=== PATIENT | male | born 1950 | race American Indian/Alaskan Native ===

== ENCOUNTER 2020-08-29 21:25 | Observation (INO) | payer MEDICARE, OTHER ==
[2020-08-29] MEDS ORDERED: SODIUM CHLORIDE 0.9% 1000 ML 1,000 ML IV ONE ×2 (21:36→22:10)
--- NOTE | 2020-08-29 22:06 | Emergency Department Report ---
- General Chief complaint: Weakness Stated complaint: IMMOBILITY Time Seen by Provider: 08/29/20 21:34 Source: patient, EMS Mode of arrival: Stretcher Limitations: No Limitations - History of Present Illness Initial comments: Chief complaint: "I lost power in my legs." HPI: This is a 70-year-old male history of COPD, hypertension, gastric ulcer, diverticulosis, duodenitis, gastritis who presents with weakness. Patient had stumbling gait which began 1 hour prior to arrival. EMS noticed hypotension blood pressure 90/50. Patient had several beers prior to arrival. He denies paralysis in his legs or arms. Patient states that he was too weak to get back to the food that was cooking in the kitchen. He denies bloody or dark stools. He called his son to explain that he was too weak to walk. His son called EMS. Patient is retired. He lives alone. His PCP is Dr. Faustin. He takes 2 antihypertensive medications. Patient denies fever, chest pain, shortness of breath. MD Complaint: generalized weakness -: Sudden, This evening (1 hour prior to arrival) Location: generalized Severity: severe Consistency: constant Improves with: rest Worsens with: other (Standing) Associated Symptoms: other (Generalized weakness, hypotension) - Related Data Previous Rx's Medication Instructions Recorded Last Taken Type Acetaminophen [Acetaminophen TAB] 325 mg PO Q6H PRN #30 tablet 06/14/17 Unknown Rx Albuterol Mdi (or & Nicu Only) 2 puff IH QID PRN #1 unit 06/14/17 Unknown Rx [ProAir HFA Inhaler] Pantoprazole [Protonix TAB] 40 mg PO BID #30 day 06/14/17 Unknown Rx levoFLOXacin [Levaquin TAB] 500 mg PO Q24HR #6 day 06/14/17 Unknown Rx metroNIDAZOLE [Flagyl TAB] 500 mg PO Q8HR #90 tablet 06/14/17 Unknown Rx Allergies Allergy/AdvReac Type Severity Reaction Status Date / Time No Known Allergies Allergy Verified 06/11/17 17:26 ED Review of Systems ROS: Stated complaint: IMMOBILITY Other details as noted in HPI Comment: All other systems reviewed and negative Constitutional: denies: fever, malaise Respiratory: denies: cough, shortness of breath Cardiovascular: denies: chest pain Gastrointestinal: denies: abdominal pain, nausea, vomiting Neurological: denies: headache ED Past Medical Hx - Past Medical History Previous Medical History?: Yes Hx Hypertension: Yes Hx Renal Disease: No Hx Sickle Cell Disease: No Hx COPD: Yes - Surgical History Past Surgical History?: Yes Additional Surgical History: Gastric surgery for ulcer - Social History Smoking Status: Current Every Day Smoker Substance Use Type: Alcohol, Marijuana - Medications Home Medications: Home Medications Medication Instructions Recorded Confirmed Last Taken Type Acetaminophen [Acetaminophen TAB] 325 mg PO Q6H PRN #30 tablet 06/14/17 Unknown Rx Albuterol Mdi (or & Nicu Only) 2 puff IH QID PRN #1 unit 06/14/17 Unknown Rx [ProAir HFA Inhaler] Pantoprazole [Protonix TAB] 40 mg PO BID #30 day 06/14/17 Unknown Rx levoFLOXacin [Levaquin TAB] 500 mg PO Q24HR #6 day 06/14/17 Unknown Rx metroNIDAZOLE [Flagyl TAB] 500 mg PO Q8HR #90 tablet 06/14/17 Unknown Rx ED Physical Exam - General Limitations: No Limitations General appearance: alert, in no apparent distress, appears intoxicated, other (Slurred speech, strong odor of alcohol on breath) - Head Head exam: Present: atraumatic, normocephalic - Eye Eye exam: Present: conjunctival injection. Absent: scleral icterus - ENT ENT exam: Present: mucous membranes moist - Neck Neck exam: Present: normal inspection, full ROM - Respiratory Respiratory exam: Present: normal lung sounds bilaterally. Absent: respiratory distress, wheezes, rales, rhonchi - Cardiovascular Cardiovascular Exam: Present: regular rate, normal rhythm, normal heart sounds. Absent: systolic murmur, diastolic murmur, rubs, gallop - GI/Abdominal GI/Abdominal exam: Present: soft, normal bowel sounds - Extremities Exam Extremities exam: Present: normal inspection - Neurological Exam Neurological exam: Present: alert, oriented X3 - Psychiatric Psychiatric exam: Present: normal mood, flat affect - Skin Skin exam: Present: warm, dry, intact, normal color. Absent: rash - Assessment Assessment Interval: Baseline - Level of Consciousness 1a. Level of Consciousness: alert/keenly responsive - LOC Questions 1b. LOC Questions: answers both correctly - LOC Command 1c. LOC Commands: performs tasks correctly - Best Gaze 2. Best Gaze: normal - Visual 3. Visual: no visual loss - Facial Palsy 4. Facial Palsy: normal symmetrical movement - Motor Arm 5a. Motor Arm Left: no drift 5b. Motor Arm Right: no drift - Motor Leg 6a. Motor Leg Left: no drift 6b. Motor Leg Right: no drift - Limb Ataxia 7. Limb Ataxia: absent - Sensory 8. Sensory: normal - Best Language 9. Best Language: no aphasia - Dysarthria 10. Dysarthria: mild/moderate dysarthria - Extinction and Inattention 11. Extinction/Inattention: no abnormality - Scoring Total Score: 1 Stroke Severity: Minor Stroke ED Course Vital Signs 08/29/20 08/29/20 08/29/20 21:34 21:47 21:52 Temperature 97.9 F Pulse Rate 71 69 Respiratory 17 Rate Blood Pressure 91/42 O2 Sat by Pulse 77 L Oximetry 08/29/20 08/29/20 08/29/20 22:00 23:15 23:31 Temperature Pulse Rate 60 64 Respiratory 18 18 14 Rate Blood Pressure 104/52 113/48 O2 Sat by Pulse 96 93 91 Oximetry 08/29/20 23:45 Temperature Pulse Rate Respiratory 14 Rate Blood Pressure 113/48 O2 Sat by Pulse 93 Oximetry ED Medical Decision Making - Lab Data Result diagrams: 08/29/20 21:51 08/29/20 21:51 Laboratory Results - last 24 hr 08/29/20 08/29/20 08/29/20 21:51 21:51 21:51 WBC 6.5 RBC 4.45 Hgb 12.9 Hct 39.5 MCV 89 MCH 29 MCHC 33 RDW 16.5 H Plt Count 183 Lymph % (Auto) 15.2 [place] % (Auto) 9.0 H Eos % (Auto) 0.3 Baso % (Auto) 0.5 Lymph # (Auto) 1.0 L [place] # (Auto) 0.6 Eos # (Auto) 0.0 Baso # (Auto) 0.0 Seg Neutrophils % 75.0 H Seg Neutrophils # 4.8 PT 12.5 INR 0.95 APTT 25.1 Sodium Potassium Chloride Carbon Dioxide Anion Gap BUN Creatinine Estimated GFR BUN/Creatinine Ratio Glucose Calcium Total Bilirubin AST ALT Alkaline Phosphatase Troponin T < 0.010 Total Protein Albumin Albumin/Globulin Ratio Plasma/Serum Alcohol 08/29/20 08/29/20 21:51 21:51 WBC RBC Hgb Hct MCV MCH MCHC RDW Plt Count Lymph % (Auto) [place] % (Auto) Eos % (Auto) Baso % (Auto) Lymph # (Auto) [place] # (Auto) Eos # (Auto) Baso # (Auto) Seg Neutrophils % Seg Neutrophils # PT INR APTT Sodium 127 L Potassium 3.9 Chloride 89.9 L Carbon Dioxide 23 Anion Gap 18 BUN 25 H Creatinine 1.2 Estimated GFR > 60 BUN/Creatinine Ratio 21 Glucose 95 Calcium 8.6 Total Bilirubin 0.20 AST 34 ALT 31 Alkaline Phosphatase 68 Troponin T Total Protein 7.3 Albumin 4.1 Albumin/Globulin Ratio 1.3 Plasma/Serum Alcohol 0.21 H - EKG Data -: EKG Interpreted by Me EKG shows normal: sinus rhythm, axis, intervals, QRS complexes, ST-T waves Rate: normal - EKG Data Interpretation: normal EKG 08/30/20 00:50 EKG obtained 44 EKG interpreted by me Normal sinus rhythm normal rate normal axis normal intervals no ST elevation no ST-T signs of ischemia normal EKG rate 60 bpm - Radiology Data Radiology results: report reviewed Patient Name: ERWIN MYLES Gender: Male Date of : 1950 Referring Provider: JEANINE THOMAS Organization: [facility] Accession Number: [id number] Requested Date: August 29, 2020 21:35 Report Status: Final Requested Procedure: 1 Procedure Description: CT head/brain wo con Modality: CT Findings Reporting MD: Kyle Sotomayor Dictation Time: August 29, 2020 21:03 On Awake Counselor: Not available Community Affairs Director Date: CT HEAD WITHOUT CONTRAST INDICATION / CLINICAL INFORMATION: ataxia slurred speech. TECHNIQUE: All CT scans at this location are performed using CT dose reduction for ALARA by means of automated exposure control. COMPARISON: None available. FINDINGS: There is no acute intracranial hemorrhage. Ventricles are normal in size without midline shift or mass effect. No extra-axial fluid collection is seen. Visualized orbits appear normal. Mild sinus disease. ADDITIONAL FINDINGS: None. IMPRESSION: 1. No acute hemorrhage is seen. There is concern for acute ischemic change MRI is recommended. 2. Mild diffuse sinus disease. Signer Name: Kyle Sotomayor MD Signed: 08/29/2020 9:03 PM Workstation Name: [id number] Patient Name: ERWIN MYLES Gender: Male Date of : 1950 Referring Provider: JEANINE THOMAS Organization: [facility] Accession Number: [id number] Requested Date: August 29, 2020 21:36 Report Status: Final Requested Procedure: 1 Procedure Description: XR chest 1V ap Modality: XR Findings Reporting MD: Mikel Roberts Dictation Time: August 29, 2020 21:38 On Awake Counselor: Not available Community Affairs Director Date: CHEST 1 VIEW 08/29/2020 10:03 PM INDICATION / CLINICAL INFORMATION: slurred speech ataxia. COMPARISON: Report from 06/11/2017. Images are not available for direct comparison. FINDINGS: Patient is rotated. SUPPORT DEVICES: None. HEART / MEDIASTINUM: No significant abnormality. LUNGS / PLEURA: No significant pulmonary or pleural abnormality. No pneumothorax. ADDITIONAL FINDINGS: No significant additional findings. IMPRESSION: 1. No acute findings. Signer Name: Mikel Roberts MD Signed: 08/29/2020 9:38 PM Workstation Name: [id number] - Medical Decision Making 1. Hypotension: I suspect patient may have inadvertently taken too much medication at home. He does not have evidence of GI bleed. He denies dark stools or bloody vomitus. I suspect hypotension is the cause of patient's generalized weakness. No evidence of neurological deficit.Due to persistent hypotension and I presume orthostasis he will be admitted to IMCU for hydration and monitoring. 2. Acute alcohol intoxication with slurred speech labile mood slight agitation. Blood alcohol level 0.21. 3. Hyponatremia: Possibly hypovolemic hyponatremia versus euvolemic hyponatremia in the setting of hydrochlorothiazide use. Patient states that he takes her blood pressure medication that begins with an "H" patient also drinks beer. Beer potomania in the setting of diuretic use would explain hyponatremia. Critical Care Time: Yes Critical care time in (mins) excluding proc time.: 40 Critical care attestation.: If time is entered above; I have spent that time in minutes in the direct care of this critically ill patient, excluding procedure time. 40 minutes of critical care time excluding procedures were used in the care of the patient. I came immediately to the bedside upon patient's arrival. I obtained history from EMS at the bedside. I was initially concerned for possible stroke. I suspect that the weakness was due to hypotension and the etiology thereof. I discussed treatment plan with the nursing team members. I reviewed electronic record. I kept the family members informed. Patient required multiple interventions and reassessments. ED Disposition Clinical Impression: Hypotension, Acute alcohol intoxication, History of COPD, Hyponatremia Disposition: OP ADMIT IP TO THIS HOSP Is pt being admited?: Yes Does the pt Need Aspirin: No Condition: Stable Referrals: ABRAN FAUSTIN MD [Primary Care Provider] - 3-5 Days
--- NOTE | 2020-08-29 22:08 | Cat Scan Report ---
CT HEAD WITHOUT CONTRAST INDICATION / CLINICAL INFORMATION: ataxia slurred speech. TECHNIQUE: All CT scans at this location are performed using CT dose reduction for ALARA by means of automated e xposure control. COMPARISON: None available. FINDINGS: There is no acute intracranial hemorrhage. Ventricles are normal in size without midline shift or mas s effect. No extra-axial fluid collection is seen. Visualized orbits appear normal. Mild sinus diseas e. ADDITIONAL FINDINGS: None. IMPRESSION: 1. No acute hemorrhage is seen. There is concern for acute ischemic change MRI is recommended. 2. Mild diffuse sinus disease. Signer Name: Kyle Sotomayor MD Signed: 08/29/2020 10:03 PM Workstation Name: [id number]
[2020-08-29 22:10] LABS: Basophils % (Auto) 0.5 % (0.0-1.8); Eosinophils % (Auto) 0.3 % (0.0-4.3); Hematocrit 39.5 % (35.5-45.6); Hemoglobin 12.9 gm/dl (11.8-15.2); Lymphocytes % (Auto) 15.2 % (13.4-35.0); Mean Corpuscular HGB Conc 33 % (32-34); Mean Corpuscular Volume 89 fl (84-94); Monocytes # (Auto) 0.6 K/mm3 (0.0-0.8); Platelet Count 183 K/mm3 (140-440); Red Blood Count 4.45 M/mm3 (3.65-5.03); Red Cell Distribution Width 16.5 % (13.2-15.2)
[2020-08-29] MEDS ORDERED: PANTOPRAZOLE 40 MG INJ IV ONE (22:11)
[2020-08-29 22:29] LABS: Alanine Aminotransferase 31 units/L (7-56); Albumin 4.1 g/dL (3.9-5); BUN/Creatinine Ratio 21; Blood Urea Nitrogen 25 mg/dL (9-20); Calcium 8.6 mg/dL (8.4-10.2); Hemolysis Index 22
[2020-08-29 22:30] LABS: INR 0.95 (0.87-1.13)
[2020-08-29 22:31] LABS: Partial Thromboplastin Time 25.1 Sec. (24.2-36.6)
--- NOTE | 2020-08-29 22:42 | XRay Report ---
CHEST 1 VIEW 08/29/2020 10:03 PM INDICATION / CLINICAL INFORMATION: slurred speech ataxia. COMPARISON: Report from 06/11/2017. Images are not available for direct comparison. FINDINGS: Patient is rotated. SUPPORT DEVICES: None. HEART / MEDIASTINUM: No significant abnormality. LUNGS / PLEURA: No significant pulmonary or pleural abnormality. No pneumothorax. ADDITIONAL FINDINGS: No significant additional findings. IMPRESSION: 1. No acute findings. Signer Name: Mikel Roberts MD Signed: 08/29/2020 10:38 PM Workstation Name: [id number]
[2020-08-30] MEDS ORDERED: SODIUM CHLORIDE 0.9% 1000 ML 1,000 ML IV ONE (00:09)
--- NOTE | 2020-08-30 03:05 | History and Physical Report ---
History of Present Illness Date of examination: 08/30/20 Date of admission: 08/30/20 01:22 Chief complaint: Dizziness Hypotension History of present illness: HPI: This is a 70-year-old male history of COPD, hypertension, gastric ulcer, diverticulosis, duodenitis, gastritis who presents with weakness. Patient had stumbling gait which began 1 hour prior to arrival. EMS noticed hypotension blood pressure 90/50. Patient had several beers prior to arrival. He denies paralysis in his legs or arms. The work-up shows WBC 6.5 hemoglobin 12.9 platelets 183 sodium 127 Potassium 3.9 BUN 18 creatinine 1.2, glucose 95, albumin 4.1, calcium 8.6 chest x-ray -no acute finding CT of the head done 1. No acute hemorrhage seen 2. Mild diffuse sinus disease. Patient seen at the bedside alert and oriented x3. Patient complains of sinus congestion dizziness. Blood pressure low patient received bolus of normal saline in the ED. We will continue with IV hydration with normal saline. Patient is on oxygen at 2 L by nasal cannula. Patient not in acute distress at the time of assessment Past History Past Medical History: COPD, hypertension, other (Hx of gastric ulcer and GI bleed) Past Surgical History: No surgical history Social history: Lives alone, smoking Family history: no significant family history Medications and Allergies Allergies Allergy/AdvReac Type Severity Reaction Status Date / Time No Known Allergies Allergy Verified 06/11/17 17:26 Home Medications Medication Instructions Recorded Confirmed Last Taken Type Acetaminophen [Acetaminophen TAB] 325 mg PO Q6H PRN #30 tablet 06/14/17 Unknown Rx Albuterol Mdi (or & Nicu Only) 2 puff IH QID PRN #1 unit 06/14/17 Unknown Rx [ProAir HFA Inhaler] Pantoprazole [Protonix TAB] 40 mg PO BID #30 day 06/14/17 Unknown Rx levoFLOXacin [Levaquin TAB] 500 mg PO Q24HR #6 day 06/14/17 Unknown Rx metroNIDAZOLE [Flagyl TAB] 500 mg PO Q8HR #90 tablet 06/14/17 Unknown Rx Review of Systems Constitutional: fatigue, weakness Ears, nose, mouth and throat: no epistaxis, no bleeding gums Cardiovascular: syncope, shortness of breath Respiratory: shortness of breath Rectal: no hemorrhoids Musculoskeletal: no hot joints Integumentary: no rash, no pruritis Neurological: weakness, no head injury Psychiatric: no suicidal ideation, no disorientation, no hallucinations Endocrine: no polyphagia Hematologic/Lymphatic: no easy bruising, no easy bleeding Allergic/Immunologic: no urticaria Exam - Constitutional Vitals: Temp Pulse Resp BP Pulse Ox 97.9 F 64 16 93/44 87 08/29/20 21:47 08/29/20 23:31 08/30/20 00:31 08/30/20 00:31 08/30/20 00:31 General appearance: Present: no acute distress, obese - EENT Eyes: Present: PERRL ENT: hearing intact, clear oral mucosa - Neck Neck: Present: supple, normal ROM - Respiratory Respiratory effort: normal Respiratory: bilateral: CTA - Cardiovascular Heart rate: 87 Heart Sounds: Present: S1 & S2. Absent: rub, click - Extremities Extremities: pulses symmetrical, No edema Peripheral Pulses: within normal limits - Abdominal General gastrointestinal: Present: soft, non-tender, non-distended, normal bowel sounds Male genitourinary: Present: normal - Integumentary Integumentary: Present: clear, warm, dry - Musculoskeletal Musculoskeletal: gait normal, strength equal bilaterally - Psychiatric Psychiatric: appropriate mood/affect, intact judgment & insight - Neurologic Neurologic: CNII-XII intact, moves all extremities - Allied Health Allied health notes reviewed: nursing HEART Score - HEART Score Troponin: Troponin T < 0.010 ng/mL (0.00-0.029) 08/29/20 21:51 Results - Labs CBC & Chem 7: 08/29/20 21:51 08/29/20 21:51 Labs: Abnormal lab results 08/29/20 08/29/20 08/29/20 Range/Units 21:51 21:51 21:51 RDW 16.5 H (13.2-15.2) % [place] % (Auto) 9.0 H (0.0-7.3) % Lymph # (Auto) 1.0 L (1.2-5.4) K/mm3 Seg Neutrophils % 75.0 H (40.0-70.0) % Sodium 127 L (137-145) mmol/L Chloride 89.9 L (98-107) mmol/L BUN 25 H (9-20) mg/dL Plasma/Serum Alcohol 0.21 H (0-0.07) % Assessment and Plan - Patient Problems (1) Hyponatremia Current Visit: Yes Status: Acute Plan to address problem: Likely secondary to dehydration/alcohol use Continue IV hydration with normal saline Monitor sodium level. (2) Hypotension Current Visit: Yes Status: Acute Plan to address problem: Possibly due to dehydration Monitor vital signs continue IV hydration. (3) Acute alcohol intoxication Current Visit: Yes Status: Acute Plan to address problem: Discussed alcohol use cessation Complication of alcohol use explained to patient Patient voiced understanding (4) History of COPD Current Visit: Yes Status: Acute Plan to address problem: As needed bronchodilator Supplemental oxygen Patient is on oxygen at 2 L at the time of assessment (5) Sinusitis Current Visit: Yes Status: Acute Plan to address problem: Acute sinusitis appreciated on CT of the head Continue IV hydration and as needed decongestant Flonase/saline nasal spray as needed (6) DVT prophylaxis Current Visit: Yes Status: Acute Plan to address problem: Subcutaneous Lovenox
[2020-08-30] MEDS ORDERED: ACETAMINOPHEN 325 MG TAB PO PRN (03:07)
[2020-08-30] MEDS ORDERED: SENNOSIDES 8.6 MG TAB PO PRN (03:07)
[2020-08-30] MEDS ORDERED: ONDANSETRON 4 MG/2 ML INJ IV PRN (03:07)
[2020-08-30] MEDS ORDERED: METOCLOPRAMIDE 10 MG/2 ML INJ IV PRN (03:07)
[2020-08-30] MEDS ORDERED: ALUM-MAG HYDROXIDE-SIMETHICONE 200-200-20MG/5ML ORAL LIQD 30 ML PO PRN (03:07)
[2020-08-30] MEDS ORDERED: traMADol 50 MG TAB PO PRN (03:12)
[2020-08-30] MEDS ORDERED: traZODone 50 MG TAB PO PRN (03:12)
[2020-08-30] MEDS ORDERED: SODIUM CHLORIDE 0.9% 1000 ML 1,000 ML IV SCH (03:15)
[2020-08-30] MEDS ORDERED: FLUTICASONE PROPIONATE NASAL SPRAY 16 GM NS PRN (06:51)
[2020-08-30] MEDS ORDERED: OXYMETAZOLINE 0.05% NASAL SPRAY NS PRN (06:51)
[2020-08-30] MEDS ORDERED: ALBUTEROL 2.5 MG/3 ML NEBU IH PRN (06:58)
[2020-08-30] MEDS ORDERED: LORazepam 2 MG/ML VIAL IV PRN (09:13)
--- NOTE | 2020-08-30 09:15 | Event Note ---
Date: 08/30/20 Patient seen and examined, this is the second visit after midnight Patient admitted for hypotension and dizziness Serum alcohol level is elevated Continue IV fluid hydration, monitor vitals Transfer to telemetry Continue supportive plan of care as dictated in H&P
[2020-08-30 10:10] LABS: BUN/Creatinine Ratio 21; Blood Urea Nitrogen 21 mg/dL (9-20); Calcium 8.3 mg/dL (8.4-10.2); Hemolysis Index 5
[2020-08-30] MEDS: FAMOTIDINE 20 MG/2 ML INJ IV SCH ×2 (12:35→21:39)
[2020-08-30] MEDS: ASPIRIN EC 81 MG TAB PO SCH (12:35)
[2020-08-30] MEDS: NICOTINE 14 MG/24 HR PATCH TD SCH (21:17)
[2020-08-30] MEDS ORDERED: ENOXAPARIN 40 MG/0.4 ML INJ SUB-Q SCH (22:00)
[2020-08-30] MEDS ORDERED: D5W/0.9% NACL 1,000 ML IV SCH (22:00)
[2020-08-30] MEDS ORDERED: DEXTROSE 50% IN WATER (25GM) 50 ML SYRINGE IV PRN (22:02)
[2020-08-31 05:55] LABS: Basophils % (Auto) 0.4 % (0.0-1.8); Eosinophils # (Auto) 0.1 K/mm3 (0.0-0.4); Eosinophils % (Auto) 1.4 % (0.0-4.3); Hematocrit 37.2 % (35.5-45.6); Hemoglobin 12.2 gm/dl (11.8-15.2); Lymphocytes # (Auto) 1.1 K/mm3 (1.2-5.4); Lymphocytes % (Auto) 18.3 % (13.4-35.0); Mean Corpuscular HGB Conc 33 % (32-34); Mean Corpuscular Volume 89 fl (84-94); Monocytes # (Auto) 0.7 K/mm3 (0.0-0.8); Monocytes % (Auto) 12.4 % (0.0-7.3); Platelet Count 172 K/mm3 (140-440); Red Blood Count 4.17 M/mm3 (3.65-5.03); Red Cell Distribution Width 15.7 % (13.2-15.2)
[2020-08-31 06:12] LABS: BUN/Creatinine Ratio 19; Blood Urea Nitrogen 17 mg/dL (9-20); Calcium 8.2 mg/dL (8.4-10.2); Hemolysis Index 4
[2020-08-31 06:21] LABS: Amphetamine Screen,Urine PRESUMPTIVE NEGATIVE; Benzodiazepines Screen,Urine PRESUMPTIVE NEGATIVE; Cannabinoid Screen,Urine PRESUMPTIVE POSITIVE; Cocaine Screen,Urine PRESUMPTIVE NEGATIVE; Methadone Screen,Urine PRESUMPTIVE NEGATIVE; Opiate Screen,Urine PRESUMPTIVE NEGATIVE
[2020-08-31] MEDS ORDERED: THIAMINE 100 MG in SODIUM CHLORIDE 0.9% 50 ML IV SCH (10:00)
[2020-08-31] MEDS ORDERED: cloNIDine TTS 0.1 MG/24 HR PATCH TD SCH (10:00)
[2020-08-31] MEDS ORDERED: FOLIC ACID 1 MG TAB PO SCH (10:00)
[2020-08-31] MEDS: ASPIRIN EC 81 MG TAB PO SCH (10:01)
[2020-08-31] MEDS: FAMOTIDINE 20 MG/2 ML INJ IV SCH (10:01)
[2020-08-31] MEDS: NICOTINE 14 MG/24 HR PATCH TD SCH (10:01)
--- NOTE | 2020-08-31 10:27 | Discharge Summary ---
Providers - Providers Date of Admission: 08/30/20 01:22 Date of discharge: 08/31/20 Attending physician: LISBET WEINER 08/30/20 16:15 Consult to Wound/ET Nurse [CONS] Stat Reason For Exam: wound eval 08/31/20 09:30 Physical Therapy Evaluation and Treat [CONS] Routine Comment: Reason For Exam: Debility Primary care physician: ABRAN FAUSTIN MD Hospitalization Condition: Stable Hospital course: This is a 70-year-old male history of COPD, hypertension, gastric ulcer, diverticulosis, duodenitis, gastritis who presents to the ER with complaints of weakness, stumbling gait which began 1 hour prior to arrival. EMS noticed hypotension blood pressure 90/50. Patient had several beers prior to arrival. The work-up in the ER showed WBC 6.5 hemoglobin 12.9 platelets 183 sodium 127 Potassium 3.9 BUN 18 creatinine 1.2, glucose 95, albumin 4.1, calcium 8.6 chest x-ray -no acute finding CT of the head done 1. No acute hemorrhage seen 2. Mild diffuse sinus disease. Patient received bolus of normal saline in the ED. He was admitted to the hospital for further evaluation and management Patient was placed on the antibiotics for acute sinusitis, also placed on aggressive IV fluid hydration, electrolytes were monitored and repleted as needed. Patient symptom improved with supportive care today and tolerating diet. Patient was also given supplemental O2 and nebulizer breathing treatment as needed and scheduled for COPD Patient noted to be hypoxic and qualified for the home O2 Patient was then discharged home in stable condition with home O2 to quit smoking and drinking which he verbalized understanding Advised to follow-up outpatient alcohol rehab Disposition: DC- TO HOME OR SELFCARE Final Discharge Diagnosis (Prints w/discharge instructions): Acute hypoxic respiratory failure likely due to COPD exacerbation. acute hyponatremia likely due to beer potomania, hypotension due to dehydration, acute alcohol intoxication, history of COPD with mild exacerbation, acute sinusitis, mild NIKKIE due to vasomotor nephropathy, substance abuse with marijuana. Time spent for discharge: 34 minutes Core Measure Documentation - Palliative Care Palliative Care/ Comfort Measures: Not Applicable - Core Measures Any of the following diagnoses?: none Exam - Physical Exam Narrative exam: GENERAL: well-developed and well-nourished elderly -[place] male sitting on bed appeared to be in no discomfort. HEENT: Normocephalic. Atraumatic. No conjunctival congestion or icterus. Patient has moist mucous membranes. NECK: Supple. Trachea midline. CHEST/LUNGS: Clear to auscultated bilaterally, breathing nonlabored. No wheezes crackles or rhonchi. HEART/CARDIOVASCULAR: Regular in rate and rhythm. S1 and S2 positive. ABDOMEN: Abdomen is soft, nontender. Patient has normal bowel sounds. SKIN: There is no rash. Warm and dry. NEURO: No focal motor deficit. Follows command. MUSCULOSKELETAL: No joint effusion or tenderness. EXTRIMITY: No edema, no cyanosis or clubbing. PSYCH: Cooperative. - Constitutional Vitals: Temp Pulse Resp BP Pulse Ox 98.4 F 81 16 155/85 94 08/31/20 07:22 08/31/20 07:22 08/31/20 07:22 08/31/20 07:22 08/31/20 07:22 Plan Activity: advance as tolerated Weight Bearing Status: Weight Bear as Tolerated Diet: low fat, low salt Special Instructions: smoking cessation, home oxygen via (2.5L N/c), other (Abstinence from alcohol and marijuana) Additional Instructions: Please quit drinking alcohol and smoking. Ambulate as tolerated, Low-fat low-salt diet. Follow-up with PCP in 1 week. Repeat BMP in 1 week Follow up with: ABRAN FAUSTIN MD [Primary Care Provider] - 3-5 Days Prescriptions: Folic Acid [Folvite] 1 mg PO QDAY #30 tablet Nicotine [Habitrol] 14 mg TD QDAY #7 patch Aspirin EC [Halfprin EC] 81 mg PO QDAY #30 tablet Metoprolol [Lopressor TAB] 25 mg PO BID #60 tablet Thiamine [Vitamin B-1] 100 mg PO QDAY #14 tablet Azithromycin [Zithromax] 250 mg PO QDAY #3 tablet
[2020-08-31] MEDS ORDERED: PNEUMOCOCCAL 23 Valent 0.5 ML VIAL IM ONE (12:00)
[2020-08-31 12:26] VITALS: BP 170/94
--- NOTE | 2020-09-03 13:58 | Electrocardiograph Report ---
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
== END 2020-08-31 16:30 | disposition home or self-care (01) ==
LOC: ED 21:25 → IMCU 08-30 01:22 → 4A 08-30 15:52
PROVIDERS: ADMIT Internal Medicine Geriatric Medicine; ATTEND Internal Medicine
DX: I95.9 Hypotension, unspecified (principal); F10.129 Alcohol abuse with intoxication, unspecified; E87.1 Hypo-osmolality and hyponatremia; J96.01 Acute respiratory failure with hypoxia; J44.9 Chronic obstructive pulmonary disease, unspecified; J32.9 Chronic sinusitis, unspecified; I10 Essential (primary) hypertension; F17.210 Nicotine dependence, cigarettes, uncomplicated; Z87.09 Personal history of other diseases of the respiratory system; Z87.11 Personal history of peptic ulcer disease; Z79.899 Other long term (current) drug therapy
CPT/HCPCS: 36415; 70450; 71045; 80048; 80053; 80307; 84484; 85025; 85610; 85730; 93005; 94640; 96361; 96365; 96372; 96375; 96376; 97162; 99291; C9113; G0378; J1650; J3411; J7030; J7042; 80320; G0480